=== PATIENT | female | born 1985 | race Caucasian/White ===

== ENCOUNTER 2020-05-22 00:16 | Outpatient (CLI) | payer OTHER ==
[~2020-05-22] VITALS: Ht 160 cm; Wt 100.0 kg
[~2020-05-22 00:16] MED LIST: ACET325T14 PO; DOCU-131 PO; HYDR-1067 PO; HYDR-3237 PO; IBUP-1222 PO; PNV1TABL4 PO
== END 2020-05-22 02:30 | disposition home or self-care (01) ==
LOC: LDOP 00:16
PROVIDERS: ATTEND Obstetrics & Gynecology
DX: O09.93 Supervision of high risk pregnancy, unspecified, third trimester (principal); O62.9 Abnormality of forces of labor, unspecified; Z3A.37 37 weeks gestation of pregnancy
CPT/HCPCS: 59025

== ENCOUNTER 2020-05-25 10:55 | Inpatient (IN) | payer OTHER ==
[~2020-05-25] VITALS: Ht 160 cm; Wt 100.0 kg
[2020-05-25 11:11] VITALS: BP 139/84
[2020-05-25 11:35] LABS: BASOPHILS % (AUTO) 0 % (0-1); EOSINOPHILS % (AUTO) 1 % (1-7); LYMPHOCYTES % (AUTO) 14 % (22-44); MD NO; MEAN CORPUSCULAR HEMOGLOBIN 30.8 pg (27.0-34.8); MEAN CORPUSCULAR HGB CONC 34.5 g/dL (32.4-35.8); MEAN PLATELET VOLUME 7.8 fL (7.4-10.4); MONOCYTES % (AUTO) 8 % (2-9); NEUTROPHILS % (AUTO) 76 % (42-75); PLATELET COUNT 274 x10^3/uL (130-400); RED BLOOD COUNT 4.54 x10^6/uL (3.82-5.3); RED CELL DISTRIBUTION WIDTH 14.4 % (9.6-15.2)
[2020-05-25 11:45] LABS: MICROSCOPIC INDICATED
[2020-05-25 11:46] LABS: ALANINE AMINOTRANSFERASE 16 U/L (12-78); ALBUMIN 2.7 g/dL (3.4-5.0); ANION GAP 10 mmol/L (5-15); CALCIUM 9.3 mg/dL (8.5-10.1); CHLORIDE 106 mmol/L (98-107)
[2020-05-25 11:48] LABS: ALKALINE PHOSPHATASE 131 U/L (45-117); BILIRUBIN,TOTAL 0.2 mg/dL (0.2-1.0); TOTAL PROTEIN 7.2 g/dL (6.4-8.2)
[2020-05-25 11:49] LABS: CREATININE,URINE RANDOM 65.5 mg/dL
[2020-05-25 11:51] LABS: BILIRUBIN, DIRECT < 0.1 mg/dL (0.1-0.2)
[2020-05-25] MEDS: LACTATED RINGERS 1,000 ML IV SCH (12:45)
[2020-05-25] MEDS ORDERED: NEWBORN KIT ONE (12:47)
[2020-05-25] MEDS ORDERED: LIDOCAINE 1%, 20ML ONE (12:47)
[2020-05-25] MEDS ORDERED: MISOPROSTOL 200 MCG TABLET ONE (12:47)
[2020-05-25] MEDS ORDERED: OXYTOCIN 30U/ 0.9% NaCL 500ML 500 ML IV PRN (13:00)
[2020-05-25] MEDS ORDERED: ONDANSETRON 2MG/ML, 2ML IVPush PRN (13:00)
[2020-05-25] MEDS ORDERED: FENTANYL PF 100 MCG/2ML IV PRN (13:00)
[2020-05-25] MEDS ORDERED: D5%-LACTATED RINGERS 1,000 ML IV SCH (13:00)
[2020-05-25] MEDS ORDERED: OXYTOCIN 30U/ 0.9% NaCL 500ML 500 ML IV ONE (13:00)
[2020-05-25] MEDS ORDERED: MISOPROSTOL 25 MCG TABLET VG PRN (13:00)
[2020-05-25] MEDS ORDERED: TERBUTALINE 1 MG/ML, 1ML SQ PRN (13:00)
[2020-05-25] MEDS ORDERED: SODIUM CITRATE/CITRIC ACID 30 ML UDC PO PRN (13:00)
[2020-05-25] MEDS ORDERED: FENTANYL PF 100 MCG/2ML IVPush PRN (13:00)
[2020-05-25] MEDS ORDERED: TERBUTALINE 1 MG/ML, 1ML IVPush PRN (13:00)
[2020-05-25] MEDS ORDERED: METOCLOPRAMIDE 5 MG/ML, 2ML IVPush PRN (13:00)
[2020-05-25] MEDS: CALCIUM CARBONATE 500 MG TAB.CHEW PO PRN ×2 (13:37→18:24)
[2020-05-25] MEDS ORDERED: LIDOCAINE/PF 1.5% EPI 1:200K, 10 ML ONE (20:30)
[2020-05-25] MEDS ORDERED: FENTANYL/BUPIV./NS/PF 250 ML EPIDCONT ONE (20:31)
[2020-05-25] MEDS ORDERED: EPHEDRINE 50 MG/ML, 1ML IVPush PRN (21:30)
[2020-05-25] MEDS ORDERED: LACTATED RINGERS 1,000 ML IV SCH (21:30)
[2020-05-25] MEDS ORDERED: FENTANYL/BUPIV./NS/PF 250 ML EPIDCONT SCH (21:30)
[2020-05-25] MEDS ORDERED: LACTATED RINGERS 1,000 ML IVBOLUS PRN (21:30)
[2020-05-25] MEDS ORDERED: NALOXONE 0.4 MG/ML, 1ML IVPush PRN (21:30)
[2020-05-25] MEDS: FAMOTIDINE 20 MG/2 ML IVPush PRN (22:07)
[2020-05-26] MEDS ORDERED: MAGNESIUM SULFATE PMX 4GM/100M 100 ML ONE (00:40)
[2020-05-26] MEDS ORDERED: MAGNESIUM SULFATE PMX 4GM/100M 100 ML IVPB ONE (01:00)
[2020-05-26] MEDS ORDERED: OXYcodone/APAP 10/325MG TABLET PO ONE (01:00)
[2020-05-26] MEDS ORDERED: ONDANSETRON 2MG/ML, 2ML IVPush PRN (01:00)
[2020-05-26] MEDS: MAGNESIUM SULF. PMX 20GM/500ML 500 ML IV SCH ×3 (01:05→19:25)
[2020-05-26] MEDS ORDERED: OXYTOCIN 10 UNITS/ML, 1ML IM PRN (02:00)
[2020-05-26] MEDS ORDERED: MISOPROSTOL 200 MCG TABLET PR PRN (02:00)
[2020-05-26] MEDS ORDERED: HYDROcodone/APAP 5/325 TABLET PO PRN (02:00)
[2020-05-26] MEDS: OXYTOCIN 30U/ 0.9% NaCL 500ML 500 ML IV SCH ×3 (02:00→19:25)
[2020-05-26] MEDS ORDERED: SIMETHICONE 80 MG CHEW TAB PO PRN (02:00)
[2020-05-26] MEDS ORDERED: ONDANSETRON 2MG/ML, 2ML IV PRN (02:00)
[2020-05-26] MEDS ORDERED: CARBOPROST TROMETHAMINE 250 MCG/ML, 1ML IM PRN (02:00)
[2020-05-26] MEDS: IBUPROFEN 600 MG TABLET PO PRN (04:15)
[2020-05-26] MEDS: HYDROcodone/APAP 5/325 TABLET PO PRN ×4 (05:27→21:44)
[2020-05-26] MEDS: LACTATED RINGERS 1,000 ML IV SCH (07:25)
[2020-05-26] MEDS: DOCUSATE 100 MG CAPSULE PO PRN ×2 (07:27→21:02)
[2020-05-26] MEDS: PRENATAL VIT/IRON/FA 1 EACH TABLET PO SCH (07:27)
[2020-05-26 07:30] VITALS: BP 126/75
[2020-05-26 09:14] LABS: BASOPHILS % (AUTO) 0 % (0-1); EOSINOPHILS % (AUTO) 1 % (1-7); LYMPHOCYTES % (AUTO) 13 % (22-44); MEAN CORPUSCULAR HEMOGLOBIN 30.4 pg (27.0-34.8); MEAN CORPUSCULAR HGB CONC 34.2 g/dL (32.4-35.8); MEAN PLATELET VOLUME 7.5 fL (7.4-10.4); MONOCYTES % (AUTO) 9 % (2-9); NEUTROPHILS % (AUTO) 78 % (42-75); PLATELET COUNT 230 x10^3/uL (130-400); RED BLOOD COUNT 4.23 x10^6/uL (3.82-5.3); RED CELL DISTRIBUTION WIDTH 13.9 % (9.6-15.2)
[2020-05-26 09:27] LABS: MD NO
[2020-05-26 13:10] VITALS: BP 118/70
[2020-05-26] MEDS: ACETAMINOPHEN 325 MG TABLET PO PRN ×2 (17:28→21:02)
[2020-05-26 20:00] VITALS: BP 117/78
[2020-05-27] MEDS: ACETAMINOPHEN 325 MG TABLET PO PRN ×2 (01:02→04:55)
[2020-05-27 01:03] VITALS: BP 128/80
[2020-05-27] MEDS: HYDROcodone/APAP 5/325 TABLET PO PRN ×3 (02:00→10:44)
[2020-05-27 04:56] VITALS: BP 119/76
[2020-05-27] MEDS: MAGNESIUM SULF. PMX 20GM/500ML 500 ML IV SCH ×2 (05:49→06:52)
[2020-05-27] MEDS: FAMOTIDINE 20 MG/2 ML IVPush PRN (06:53)
[2020-05-27 08:20] VITALS: BP 129/67
[2020-05-27] MEDS ORDERED: HYDR-1067 PO (08:47)
[2020-05-27] MEDS ORDERED: IBUP-1222 PO (08:47)
[2020-05-27] MEDS ORDERED: SENN-92 PO (08:47)
[2020-05-27] MEDS: IBUPROFEN 600 MG TABLET PO PRN (10:45)
[2020-05-27] MEDS: PRENATAL VIT/IRON/FA 1 EACH TABLET PO SCH (11:31)
[2020-05-27] MEDS: DOCUSATE 100 MG CAPSULE PO PRN (11:31)
== END 2020-05-27 12:12 | disposition home or self-care (01) | DRG 807 ==
LOC: LDOP 10:55 → LDIP 12:02 → 2NE 05-26 03:56 → 2NW 05-26 19:29
PROVIDERS: ADMIT Obstetrics & Gynecology; ATTEND Obstetrics & Gynecology
PROC: 10E0XZZ Delivery of Products of Conception, External Approach (ICD-10-PCS; principal; 2020-05-26)
PROC: 10907ZC Drainage of Amniotic Fluid, Therapeutic from Products of Conception, Via Natural or Artificial Opening (ICD-10-PCS; 2020-05-26)
PROC: 10H07YZ Insertion of Other Device into Products of Conception, Via Natural or Artificial Opening (ICD-10-PCS; 2020-05-26)
PROC: 3E0R3BZ Introduction of Anesthetic Agent into Spinal Canal, Percutaneous Approach (ICD-10-PCS; 2020-05-26)
PROC: 00HU33Z Insertion of Infusion Device into Spinal Canal, Percutaneous Approach (ICD-10-PCS; 2020-05-26)
PROC: 0HQ9XZZ Repair Perineum Skin, External Approach (ICD-10-PCS; 2020-05-26)
DX: O14.04 Mild to moderate pre-eclampsia, complicating childbirth (principal); Z37.0 Single live birth; Z20.822 Contact with and (suspected) exposure to COVID-19; O70.0 First degree perineal laceration during delivery; Z90.721 Acquired absence of ovaries, unilateral; Z3A.37 37 weeks gestation of pregnancy
CPT/HCPCS: 36415; 80053; 81001; 82248; 82570; 83735; 84156; 84550; 85025; 86592; 86850; 86900; 87086; 87635; 88305; G0378; J2405; J3010; J2590; J3475; J7120